=== PATIENT | male | born 1980 | race Caucasian/White ===

== ENCOUNTER 2020-09-27 02:17 | Inpatient (IN) | payer MEDICAID, SELFPAY ==
[2020-09-27 02:35] VITALS: BP 122/82; PULSE 102; RESP 15; TEMP 36.6; O2SAT 98; BMI 21.7
--- NOTE | 2020-09-27 02:50 | W.ED.PSYCH ---
HPI - Psych General: Chief Complaint: Psychiatric Symptoms Stated Complaint: SI Time Seen by Provider: 09/27/20 02:21 Source: patient Mode of arrival: ambulatory Limitations: no limitations History of Present Illness: HPI Narrative: 39-year-old male states has been having suicidal thoughts for months. He states is gotten much worsening scary section going to kill himself. He states he has a plan of jumping out in traffic. He states he supposed to be on medication but has not been on them in months to years. He states he was admitted once 10 years ago. He states that he needs to get help before he does something. He does admit to drinking alcohol. Associated symptoms: Reports suicidal ideation; Deny depression Review of Systems Const: Denies: fever(s), chills, body aches or change in appetite Eyes: Denies: blurry vision or eye discomfort ENMT: Denies: throat pain or dental pain Card: Denies: chest pain Resp: Denies: dyspnea GI: Denies: abdominal pain, nausea, vomiting or diarrhea : Denies: dysuria Musc: Denies: neck pain or back pain Skin/Breast: Denies: rash Neuro: Denies: headache(s) Psych: Reports: suicidal ideation; Denies: depression Jae/Lymph: Denies: easy bruising All/Imm: Denies: urticaria Physical Exam Const: COMMON NORMALS: no acute distress, patient oriented x3 and healthy appearing HENMT: COMMON NORMALS: normocephalic and atraumatic HEAD & SCALP: normocephalic and atraumatic Eye: COMMON NORMALS: Equal, round and reactive pupils present and EOMs intact bilaterally PUPIL: Yes Equal, round and reactive pupils present Neck/C-Spine: COMMON NORMALS: full ROM and supple Chest: COMMONS NORMALS: normal inspection of the chest and normal palpation of entire chest wall Resp: COMMON NORMALS: normal respiratory effort, No retractions, No use of accessory muscles and clear to auscultation bilaterally AUSCULTATION: clear to auscultation bilaterally Cardio: COMMON NORMALS: regular rate, regular rhythm and No murmurs present (Cardio) RATE: regular rate RHYTHM: regular rhythm GI: COMMON NORMALS: Normal to inspection, nondistended, normoactive bowel sounds present, Soft to palpation, non-tender and no masses PALPATION: Yes Soft to palpation Extremity: COMMON NORMALS: normal to inspection and full ROM Neuro: COMMON NORMALS: patient oriented x3, moves all extremities and no focal motor deficits Psych: COMMON NORMALS: mental status grossly normal, Normal thought process present and cooperative MOOD & AFFECT: Yes depressed mood THOUGHT PROCESS: Normal thought process present THOUGHT CONTENT: Yes Suicidality present Skin: COMMON NORMALS: no rashes or lesions noted and no wounds GENERAL SKIN EXAM: no rashes or lesions noted Course Vital Signs: Vital signs: Vital Signs Temperature 97.9 F 09/27/20 02:35 Pulse Rate 102 H 09/27/20 02:35 Respiratory Rate 15 09/27/20 02:35 Blood Pressure 122/82 09/27/20 02:35 Pulse Oximetry 98 09/27/20 02:35 MDM - Psych MDM Narrative: Medical decision making narrative: Patient presents for suicidal ideation with a plan to jump out in traffic. Patient placed on a 96 and is medically cleared. I spoke to psychiatrist and will admit. Lab Data: Labs: Lab Results 09/27/20 09/27/20 Range/Units 03:30 03:30 WBC 6.8 (4.0-10.0) 10^3/ uL RBC 4.16 (4.1-5.3) 10^6/u L Hgb 13.0 (11.7-16.6) g/dL Hct 40.3 L (42.0-52.0) % MCV 96.9 H (80-94) fL MCH 31.3 (28.0-34.0) pg MCHC 32.3 (30.0-36.0) g/dL RDW 12.3 (12.1-15.1) % Plt Count 268 (130-400) 10^3/c mm MPV 9.7 (7.4-10.4) fL Neut % (Auto) 56.3 % Lymph % (Auto) 32.5 % [place] % (Auto) 7.2 % Eos % (Auto) 3.1 % Baso % (Auto) 0.6 % Neut # (Auto) 3.80 (1.8-7.7) 10^3/u L Lymph # (Auto) 2.2 (0.8-4.8) 10^3/u L [place] # (Auto) 0.5 (0.2-0.9) 10^3/u L Eos # (Auto) 0.2 (0.0-0.8) 10^3/u L Baso # (Auto) 0.0 (0.0-0.1) 10^3/u L Nucleated RBC % (a uto) 0 % Nucleated RBCs # 0.0 /100WBC Sodium 143 (136-145) mmol/L Potassium 3.5 (3.5-5.1) mmol/L Chloride 107 (98-107) mmol/L Carbon Dioxide 24 (22-29) mmol/L Anion Gap 15.5 (5-19) BUN 15 (6-20) mg/dL Creatinine 0.7 (0.7-1.2) mg/dL GFR Calculation 126.2 (90-130) mL/min Glucose 123 H (65-115) mg/dL Calculated Osmolal ity 298 H (285-295) mOsm/k g Calcium 8.2 L (8.5-10.5) mg/dL Total Bilirubin 0.2 (0.15-1.2) mg/dL AST 18 (0-40) U/L ALT 27 (0-41) U/L Alkaline Phosphata se 51 (40-130) IU/L Total Protein 5.4 L (6.6-8.7) g/dL Albumin 3.6 (3.5-5.2) g/dL Globulin 1.8 (1.3-4.6) g/dL Salicylates < 0.3 L (3-10) mg/dL Acetaminophen < 5.0 L (10-30) ug/mL Ethyl Alcohol 202 H (0-10) mg/dL Discharge Plan Discharge Patient Disposition: Admitted As Inpatient Clinical Impression: Suicidal ideation Condition: Stable Coding Level of Care Code ED Computer Repair Technician for Sumi Fwd Exam Comprehensive
[2020-09-27 03:42] LABS: Basophils % 0.6 %; Eosinophils # 0.2 10^3/uL (0.0-0.8); Eosinophils % 3.1 %; Hematocrit 40.3 % (42.0-52.0); Lymphocytes # 2.2 10^3/uL (0.8-4.8); Lymphocytes % 32.5 %; Mean Corpuscular HGB Conc 32.3 g/dL (30.0-36.0); Mean Corpuscular Hemoglobin 31.3 pg (28.0-34.0); Mean Corpuscular Volume 96.9 fL (80-94); Mean Platelet Volume 9.7 fL (7.4-10.4); Monocytes # 0.5 10^3/uL (0.2-0.9); Monocytes % 7.2 %; Neutrophils % 56.3 %; Nucleated Red Blood Cells % 0 %; Platelet Count 268 10^3/cmm (130-400); Red Blood Count 4.16 10^6/uL (4.1-5.3); Red Cell Distribution Width 12.3 % (12.1-15.1); White Blood Count 6.8 10^3/uL (4.0-10.0)
[2020-09-27 04:00] LABS: Alanine Aminotransferase 27 U/L (0-41); Albumin Level 3.6 g/dL (3.5-5.2); Alcohol Level 202 mg/dL (0-10); Alkaline Phosphatase 51 IU/L (40-130); Anion Gap 15.5 (5-19); Aspartate Amino Transferase 18 U/L (0-40); Blood Urea Nitrogen 15 mg/dL (6-20); Calcium 8.2 mg/dL (8.5-10.5); Carbon Dioxide 24 mmol/L (22-29); Chloride 107 mmol/L (98-107); Globulin 1.8 g/dL (1.3-4.6); Glomerular Filtration Rate 126.2 mL/min (90-130); Glucose 123 mg/dL (65-115); Osmolality Calculated 298 mOsm/kg (285-295); Potassium 3.5 mmol/L (3.5-5.1); Sodium 143 mmol/L (136-145); Total Bilirubin 0.2 mg/dL (0.15-1.2); Total Protein 5.4 g/dL (6.6-8.7)
[2020-09-27 04:05] LABS: Acetaminophen < 5.0 ug/mL (10-30); Salicylate < 0.3 mg/dL (3-10)
[2020-09-27 06:09] LABS: Amphetamines Screen Urine Positive (Negative); Barbiturates Screen Urine Negative (Negative); Benzodiazepines Screen Urine Negative (Negative); Cocaine Screen Urine Negative (Negative); Opiate Screen Urine Negative (Negative); PCP Screen Urine Negative (Negative); THC Screen Urine Positive (Negative)
[2020-09-27 06:23] VITALS: BP 129/87; PULSE 80; RESP 16; TEMP 36.6; O2SAT 97
[2020-09-27 07:43] VITALS: BP 132/94; PULSE 91; RESP 18; TEMP 36.6; O2SAT 95
--- NOTE | 2020-09-27 08:29 | PC.NURSE ---
admit note 39-year-old male states has been having suicidal thoughts for months. He states is gotten much worsening wanting to kill himself. He states he has a plan of jumping out in traffic. He states he supposed to be on medication but has not been on them in months to years. He states he was admitted once 10 years ago. He states that he needs to get help before he does something. He does admit to drinking alcohol.
--- NOTE | 2020-09-27 13:07 | PM.NHP ---
Providers/Chief Complaint Admitting Physician: Merle Aponte DO Chief Complaint: SI HPI NPU History of Present Illness Reagan Nick is a 39 year old male with unclear past psychiatric history stating that the last time he had contact with mental health was while he was in residential a few years ago presented to the emergency department with worsening depressive symptoms and suicidal ideation as well as paranoid delusions that people are following him. Patient reports that he had been clean from methamphetamine for over a year but restarted use 3 months ago and has had near daily use over the past 3 months. Patient states that he last used a few days ago. Patient continues to report some paranoid delusions but denies any auditory hallucinations and denies any visual hallucinations. Patient reports that he has had ongoing depressive symptoms for the past year with worsening symptoms over the past month which she states prompted him to come in for evaluation and treatment. He states that he has been on psychotropic medication in the past for his depressive symptoms but states that he has not been treated with medication since he was last in residential a couple years ago. Patient states that he does not recall what medication he had previously taken. Psychiatric review of systems is otherwise negative. 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 Review of Systems General: Reports: 10 or more systems reviewed and unremarkable except in HPI and below Meds NPU Home Medications Medication Instructions Recorded Confirmed Last Taken Type metoprolol tartrate 50 mg tablet 50 mg PO BID 04/11/20 09/27/20 Unknown History sildenafil 100 mg tablet 100 mg PO DAILY PRN 04/11/20 09/27/20 Unknown History Allergies Allergy/AdvReac Type Severity Reaction Status Date / Time No Known Allergies Allergy Verified 04/11/20 10:51 [facility] NPU Other Psychiatric History: Other Psychiatric History: Per above, patient states that last psychiatric treatment was while he was in residential Reports past psychiatric hospitalizations but states it is been several years Denies past suicide attempts, denies any self-harm behavior Mental Status Exam MSE Comments: Patient sitting in the day room, calm, cooperative, shaved head, bearded, appropriately groomed wearing hospital scrubs, good eye contact Psychomotor activity is neither increased nor decreased although occasionally is somewhat fidgety, no agitation Speech is low volume, normal rate, spontaneous, fair articulation, not pressured I do not feel good, constricted affect, not labile Alert and oriented to person, place, time, situation Intellectual functioning appears to be average based on vocabulary, interview Memory and concentration appear to be fair to intact per interview Thought process, occasional delays, linear, no flight of ideas, no looseness of associations Thought content, some paranoia, does not appear to be attending to any internal stimuli, intermittent passive suicidal thoughts with no active intent or plan, no homicidal ideation Insight and judgment appear to be fair to intact Vitals/I&O/Wt Last Vital Signs Temp 97.9 F 09/27/20 07:43 Pulse 91 09/27/20 07:43 Resp 18 09/27/20 07:43 BP 132/94 09/27/20 07:43 Pulse Ox 95 09/27/20 07:43 Weight last 48 hrs Weight 61.235 kg Data NPU : 09/27/20 03:30 09/27/20 03:30 A&P Assessment and plan (1) Suicidal ideation: Status: Acute (2) Polysubstance abuse: Status: Acute (3) Methamphetamine abuse: Status: Acute (4) Depressive disorder: Status: Acute Additional A&P Information Patient with longstanding history of depressive symptoms states that his last treatment was while he was in residential a few years ago and was also the last time that he was treated with any medication, reports relapse on methamphetamine approximately 3 months ago and has been using on a daily basis with ongoing paranoia and recent worsening suicidal ideation. INVOLUNTARY ADMIT to inpatient psychiatry START fluoxetine 10 mg daily targeting depressive symptoms START olanzapine 5 mg twice daily targeting psychotic symptoms, mood Encouraged patient to participate in unit activities to include group sessions, unit milieu Coordinate with social welfare research worker for post discharge mental health care follow-up, substance counseling/treatment Involuntary Hold Information 96 Hour Hold: 96 Hour Involuntary Admission: Yes 96 Hour Hold Ending Date: 10/03/20 96 Hour Hold Ending Time: 02:56 Attestations NPU Medical Necessity Statement*: Psychiatric hospitalizations indicated for medication stabilization, coordination for safe discharge Anticipate hospital stay to exceed 2 midnights Time Spent in Patient Care: Greater than 35 minutes (>than 50% of time spent in counselling and/or direct pt care on unit). Coding Level of Care Code Acute Income Tax Preparer for Sumi Stephens Diagnoses Suicidal ideation R45.851 Polysubstance abuse F19.10 Methamphetamine abuse F15.10 Depressive disorder F32.9
[2020-09-27 13:09] VITALS: BP 132/94; PULSE 91; RESP 18; TEMP 36.6
[2020-09-27] MEDS: fluoxetine 10 mg Capsule PO (13:28)
[2020-09-27] MEDS: OLANZapine 5 mg TABLET PO ×2 (13:28→17:59)
[2020-09-27 20:56] VITALS: BP 120/77; PULSE 56; RESP 16; TEMP 37.2; O2SAT 98
[2020-09-28 06:00] VITALS: BP 131/89; PULSE 67; RESP 16; TEMP 37; O2SAT 96
[2020-09-28] MEDS: OLANZapine 5 mg TABLET PO ×2 (09:27→18:16)
[2020-09-28] MEDS: fluoxetine 10 mg Capsule PO (09:27)
[2020-09-28 14:00] VITALS: BP 148/92; PULSE 68; RESP 16; TEMP 36.9; O2SAT 97
--- NOTE | 2020-09-28 14:07 | PM.NPN ---
Subjective NPU Subjective: Interval history: Continues to be occasionally evasive about answering questions with regards to psychotic symptoms, depression but continues to report feeling depressed Denies any interval suicidal ideation Reports being compliant with medication and denies any medication side effects Somewhat evasive about attending post discharge substance treatment program Mental Status Exam MSE Comments: Initially lying in bed but goes to the day room for interview, calm, cooperative, good eye contact Psychomotor activity is neither increased nor decreased although occasionally is somewhat fidgety, no agitation Speech is low volume, normal rate, spontaneous, fair articulation, not pressured I feel depressed, constricted affect, not labile Alert and oriented to person, place, time, situation Memory and concentration appear to be fair to intact per interview Thought process, linear, no flight of ideas, no looseness of associations Thought content, no stated delusions, no hallucinations, no suicidal ideation, no homicidal ideation Insight and judgment appear to be fair to intact Vitals/I&O/Wt Last Vital Signs Temp 98.6 F 09/28/20 06:00 Pulse 67 09/28/20 06:00 Resp 16 09/28/20 06:00 BP 131/89 09/28/20 06:00 Pulse Ox 96 09/28/20 06:00 Weight last 48 hrs Weight 61.235 kg Data NPU : 09/27/20 03:30 09/27/20 03:30 A&P Assessment and plan (1) Suicidal ideation: Status: Acute (2) Depressive disorder: Status: Acute (3) Polysubstance abuse: Status: Acute (4) Methamphetamine abuse: Status: Acute Additional A&P Information Ongoing depressive symptoms, evasive about questions with regards to paranoia INCREASE to fluoxetine 20 mg daily CONTINUE olanzapine 5 mg twice daily Involuntary Hold Information 96 Hour Hold: 96 Hour Involuntary Admission: Yes 96 Hour Hold Ending Date: 10/03/20 96 Hour Hold Ending Time: 02:56 Attestations NPU Medical Necessity Statement*: Continues to require psychiatric hospitalization for medication stabilization Coding Level of Care Code Acute Diesel Truck Technician for Sumi Fwd Diagnoses Suicidal ideation R45.851 Depressive disorder F32.9 Polysubstance abuse F19.10 Methamphetamine abuse F15.10
[2020-09-28 22:00] VITALS: BP 146/96; PULSE 81; RESP 16; TEMP 36.4; O2SAT 97
[2020-09-29 06:00] VITALS: BP 143/93; PULSE 67; RESP 14; TEMP 36.3; O2SAT 98
[2020-09-29] MEDS: fluoxetine 10 mg Capsule 20 MG PO (09:14)
[2020-09-29] MEDS: OLANZapine 5 mg TABLET PO ×2 (09:14→17:23)
--- NOTE | 2020-09-29 11:48 | PM.NPN ---
Subjective NPU Subjective: Interval history: Continues to report worsening depressive symptoms, vague passive suicidal thoughts, no active intent or plan Denying any auditory or visual hallucinations, ongoing paranoia Reports being compliant with his medication, denies any medication side effects Mental Status Exam MSE Comments: Lying in bed, calm, cooperative, good eye contact Psychomotor activity is decreased, no agitation Speech is low volume, normal rate, spontaneous, fair articulation, not pressured I feel depressed, constricted affect, not labile Alert and oriented to person, place, time, situation Memory and concentration appear to be fair to intact per interview Thought process, linear, no flight of ideas, no looseness of associations Thought content, no stated delusions, no hallucinations, no suicidal ideation, no homicidal ideation Insight and judgment appear to be fair to intact Vitals/I&O/Wt Last Vital Signs Temp 97.4 F L 09/29/20 06:00 Pulse 67 09/29/20 06:00 Resp 14 09/29/20 06:00 BP 143/93 09/29/20 06:00 Pulse Ox 98 09/29/20 06:00 Data NPU : 09/27/20 03:30 09/27/20 03:30 A&P Assessment and plan (1) Suicidal ideation: Status: Acute (2) Depressive disorder: Status: Acute (3) Polysubstance abuse: Status: Acute (4) Methamphetamine abuse: Status: Acute Additional A&P Information Worsening depressive symptoms INCREASE to fluoxetine 40 mg daily CONTINUE other medication, continue to monitor Involuntary Hold Information 96 Hour Hold: 96 Hour Involuntary Admission: Yes 96 Hour Hold Ending Date: 10/03/20 96 Hour Hold Ending Time: 02:56 Attestations NPU Medical Necessity Statement*: Continues to require psychiatric hospitalization for medication stabilization Coding Level of Care Code Acute Medical Office Worker for g Fwd Diagnoses Suicidal ideation R45.851 Depressive disorder F32.9 Polysubstance abuse F19.10 Methamphetamine abuse F15.10
[2020-09-29 13:40] VITALS: BP 134/92; PULSE 70; RESP 16; TEMP 37.2; O2SAT 96
[2020-09-29 19:37] VITALS: BP 138/102; PULSE 76; RESP 18; TEMP 36.7; O2SAT 97
--- NOTE | 2020-09-30 04:52 | PC.NURSE ---
Pt slept most of shift, did come out of room to snack, and return to bed. Rested all evening, pt denies pain, denies AH, Vh, Denies SI/HI
[2020-09-30 06:00] VITALS: BP 140/99; PULSE 69; RESP 16; TEMP 36.6; O2SAT 99
[2020-09-30] MEDS: OLANZapine 5 mg TABLET PO ×2 (07:48→17:23)
[2020-09-30] MEDS: fluoxetine 20 mg Capsule 40 MG PO (07:48)
[2020-09-30 14:00] VITALS: BP 127/84; PULSE 86; RESP 17; TEMP 36.8; O2SAT 96
--- NOTE | 2020-09-30 14:10 | P.PN_ITS ---
Subjective NPU Subjective: Interval history: Patient reporting improvement in his depressive symptoms, states 2-3, denies any interval suicidal ideation Denies any interval psychotic symptoms, reports minimal paranoia States that he is been compliant with his medication, denies any medication side effects Mental Status Exam MSE Comments: Lying in bed, polite, interactive, good eye contact Psychomotor activity is neither increased nor decreased, no agitation Speech is low volume, normal rate, spontaneous, fair articulation, not pressured I feel a lot better, full range of affect, not labile Alert and oriented to person, place, time, situation Memory and concentration appear to be fair to intact per interview Thought process, linear, no flight of ideas, no looseness of associations Thought content, no stated delusions, no hallucinations, no suicidal ideation, no homicidal ideation Insight and judgment appear to be fair to intact Vitals/I&O/Wt Last Vital Signs Temp 97.9 F 09/30/20 06:00 Pulse 69 09/30/20 06:00 Resp 16 09/30/20 06:00 BP 140/99 09/30/20 06:00 Pulse Ox 99 09/30/20 06:00 Data NPU : 09/27/20 03:30 09/27/20 03:30 A&P Assessment and plan (1) Suicidal ideation: Status: Acute (2) Depressive disorder: Status: Acute (3) Polysubstance abuse: Status: Acute (4) Methamphetamine abuse: Status: Acute Additional A&P Information Reports improvement CONTINUE current medication, continue to monitor Involuntary Hold Information 96 Hour Hold: 96 Hour Involuntary Admission: Yes 96 Hour Hold Ending Date: 10/03/20 96 Hour Hold Ending Time: 02:56 Attestations NPU Medical Necessity Statement*: Continues to require psychiatric hospitalization for medication stabilization Coding Level of Care Code Acute Audiovisual Lead Technician for Sumi Fwd Diagnoses Suicidal ideation R45.851 Depressive disorder F32.9 Polysubstance abuse F19.10 Methamphetamine abuse F15.10
[2020-09-30 20:47] VITALS: BP 148/96; PULSE 89; RESP 20; TEMP 36.9; O2SAT 97
[2020-10-01 06:00] VITALS: BP 144/96; PULSE 85; RESP 18; TEMP 36.6; O2SAT 95
[2020-10-01] MEDS: fluoxetine 20 mg Capsule 40 MG PO (09:03)
[2020-10-01] MEDS: OLANZapine 5 mg TABLET PO (09:03)
--- NOTE | 2020-10-01 09:48 | P.DS_ITS ---
Diagnoses at Discharge Discharge Diagnosis (1) Suicidal ideation: Status: Acute (2) Depressive disorder: Status: Acute (3) Polysubstance abuse: Status: Acute (4) Methamphetamine abuse: Status: Acute Reason for Visit Reason for Visit: SI Hospital Course Hospital Course 39 year old male with unclear past psychiatric history stating that the last time he had contact with mental health was while he was in skilled nursing a few years ago presented to the emergency department with worsening depressive symptoms and suicidal ideation as well as paranoid delusions that people are following him. Patient reports that he had been clean from methamphetamine for over a year but restarted use 3 months ago and has had near daily use over the past 3 months. Patient states that he last used a few days ago. Patient continues to report some paranoid delusions but denies any auditory hallucinations and denies any visual hallucinations. Patient continued to report depressive symptoms at the time of initial evaluation and was started on fluoxetine which was titrated up to fluoxetine 40 mg daily and was started on olanzapine 5 mg twice daily targeting his psychotic symptoms to include paranoia. Patient reported significant improvement in both his depressive and psychotic symptoms and denied any medication side effects. Patient was denying any depressive symptoms and denying any psychotic symptoms after initiating treatment. Patient participated in unit milieu although he mostly stayed in his room with no reports of any behavioral disturbances. Patient was not suicidal and did not endorse any depressive or psychotic symptoms at the time of discharge and did not appear to pose an imminent threat of harm to himself or others. Low to moderate risk of harm to self given no current suicidal ideation and no endorsement of any psychiatric symptoms although he continues to be at an elevated risk if he continues to abuse methamphetamine or any other substances or alcohol leading to unexpected, impulsive behavior. Risk mitigation included psychiatric hospitalization, medication stabilization, recommendation to abstain from the use of substances and alcohol as well as the need for compliance with his medication, medication management and substance counseling/treatment follow- up. Patient was able to communicate his understanding of the above recommendations to include abstaining from the use of substances and alcohol and the need for follow-on substance counseling/treatment in order to further mitigate his risk of harm to self and others. Involuntary Hold Information 96 Hour Hold: 96 Hour Involuntary Admission: Yes 96 Hour Hold Ending Date: 10/03/20 96 Hour Hold Ending Time: 02:56 Mental Status Exam MSE Comments: Sitting in the day room, calm, cooperative, interactive, good eye contact Psychomotor activity is neither increased nor decreased, no agitation Speech is normal rate and volume, spontaneous, clear articulation, not pressured I feel good, full range of affect, not labile Alert and oriented to person, place, time, situation Memory and concentration appear to be fair to intact per interview Thought process, linear, no flight of ideas, no looseness of associations Thought content, no stated delusions, no hallucinations, no suicidal ideation, no homicidal ideation Insight and judgment appear to be fair to intact Discharge Data Vitals: Last Vital Signs Temp 97.8 F 10/01/20 06:00 Pulse 85 10/01/20 06:00 Resp 18 10/01/20 06:00 BP 144/96 10/01/20 06:00 Pulse Ox 95 10/01/20 06:00 Discharge Plan Discharge Patient Disposition: Home Condition: Stable Prescriptions: New olanzapine 5 mg Tablet 5 mg PO BID Qty: 60 RF: 0 fluoxetine 20 mg Capsule 40 mg PO DAILY Qty: 30 RF: 0 Continued metoprolol tartrate 50 mg tablet 50 mg PO BID RF: 0 sildenafil 100 mg tablet 100 mg PO DAILY PRN (Reason: Sexual Activity) RF: 0 Discharge Orders: Discharge Order (Routine); Ordered 10/01/20 Ordered By: Merle Aponte Referrals: [facility] [Outside] (Initial referral are walk-in Tuesdays and 7:30am to 3pm. The earlier the better) [facility] [Outside] Discharge Diet: Regular Discharge Activity: Resume usual activity Patient Instructions: Opioid Safety Discharge Attestations NPU Time Spent in Discharge Care*: greater than 30 min Status at Discharge: Cognitive status at discharge: cognitively intact , Behavioral status at discharge: cooperative , Functional status at discharge: independent ambulation Overall status at discharge: patient is back to baseline Coding Level of Care Code Acute g FW MI note Diagnoses Suicidal ideation R45.851 Depressive disorder F32.9 Polysubstance abuse F19.10 Methamphetamine abuse F15.10
[2020-10-01 10:00] VITALS: BP 144/96; PULSE 85; RESP 18; TEMP 36.6; O2SAT 95
== END 2020-10-01 11:59 | disposition home or self-care (01) | DRG 881 ==
LOC: ER 04:16 → NP 08:06
PROVIDERS: Admitting Provider Psychiatry & Neurology Psychiatry; Emergency Provider Emergency Medicine; Visit Provider Psychiatry & Neurology Psychiatry
DX: F32.9 Major depressive disorder, single episode, unspecified (principal); R45.851 Suicidal ideations; F15.10 Other stimulant abuse, uncomplicated; F19.10 Other psychoactive substance abuse, uncomplicated; F22 Delusional disorders
CPT/HCPCS: 80053; 80306; 80307; 85025; 99285

== ENCOUNTER 2024-12-06 15:42 | Inpatient (IN) | payer MEDICAID, SELFPAY ==
--- OUTSIDE RECORDS SUMMARY | 2021-09-12 04:54 | XMS_ITS | Continuity of Care Document ---
Author Organization [facility] Address [id number] [address] Phone Care Team Providers Care President And Ceo Name Role Phone Alejandro OD, Summer Unavailable Unavailabl e Procedures Procedure Date Vision svcs frames purchases Spherocylindr 4.00d/12-2.00d Spherocylindr 4.00d/12-2.00d FITTING OF SPECTACLES REFRACTION Eye Exam New Patient Advance Directives Directive Yes / No Effective Date File Name No Information Encounters Encounter Description Practice Location Reason(s) For Visit Diagnoses Date Provider Providers Copied on Encounter [facility], [id number] [place], [place], [id number], [place] tel:[phone] Vision F1 Encounter for fit/adjst of spectacles and contact lenses 2 Alejandro Yancey. [address], [place], [id number], [place]. tel:[phone] Referring Provider: Naye Allen , [address] [place], [address] . tel:[phone] [facility], [id number] [place], [id number], [place] tel:[phone] Vision F1 blurry vision (chief complaint) Myopia, bilateralRegular astigmatism, bilateral Martir- 2 Alejandro Yancey. [address], [place], [id number], . tel:[phone] Referring Provider: Naye Allen , [address] [facility] [place], [address] . tel:[phone] Family History Family Member Type Diagnosis Age At Onset No Information Payers Payer name Insurance type Covered alliance party ID Angelita bruce(s) V [employer] CI [id number] Social History Type Description Quantity Date Captured Comments Sex Male Smoking Status No Information Chief Complaint And Reason For Visit No Information Reason For Referral Reason For Referral No Information History Of Present Illness Encounter Date Complaint History Of Prese nt Illness blurry vision Last EE 2-3 year s ago. +distance blur. Lost glasses about 1 yr ago. Functional Status Date Functional Assessmen t No Information Instructions Date Instruction Additional Infor mation RTC 1yr carlos or sooner if problem s. Related to Myopia, bilateral Impression/Plan Related to Myopi a, bilateral Assessments Type Assessment Date No Information Patient Care Teams Name Effective Dates (start - stop) Status Members No Information
[2024-12-06 15:45] VITALS: BP 140/98; PULSE 107; RESP 16; TEMP 36.7; O2SAT 94
--- NOTE | 2024-12-06 15:46 | W.ED.PSYCHS ---
HPI - Psych General: Chief Complaint: Psychiatric Symptoms Stated Complaint: mhe Time Seen by Provider: 12/06/24 15:43 Source: patient Mode of arrival: ambulatory Limitations: other (intoxicated) History of Present Illness: Patient is a 44-year-old male who presents to ED today for evaluation of suicidal ideations. Patient arrives significantly intoxicated. He is not overly forthcoming with information. He states he was dropped off here at the emergency department for treatment of suicidal ideations. He will not disclose how long these have been going on. He does have a previous NPU admission back in 2020. Patient will not tell me if he has any specific plan or not. He will not elaborate on his alcohol use but does admit to being intoxicated currently. MD complaint: suicidal ideation and feels depressed Onset (ago): unknown History of same: Yes Exacerbating factors: alcohol Context: recent alcohol abuse Associated psychiatric symptoms: depression and suicidal ideation Associated symptoms: Reports depression and suicidal ideation Treatments prior to arrival: none If self harm: admits thoughts of self harm Related Data Home Medications ?Medication ?Instructions ?Recorded ?Confirmed epinephrine 0.3 mg/0.3 mL See Rx Instructions .Route .COMPLEX 12/06/24 12/06/24 injection, auto-injector famotidine 40 mg tablet 40 mg PO BID 12/06/24 12/06/24 famotidine 40 mg tablet 40 mg PO DAILY 12/06/24 12/06/24 hydrochlorothiazide 25 mg tablet 25 mg PO DAILY 12/06/24 12/06/24 lorazepam 0.5 mg tablet 0.5 mg PO BID PRN Anxiety 12/06/24 12/06/24 losartan 50 mg tablet 50 mg PO DAILY 12/06/24 12/06/24 pantoprazole 40 mg tablet,delayed 40 mg PO BID 12/06/24 12/06/24 release Allergies Allergy/AdvReac Type Severity Reaction Status Date / Time No Known Allergies Allergy Verified 04/11/20 10:51 Review of Systems Const: Denies: fever(s) or chills Card: Denies: chest pain, palpitations, lightheadedness or syncope Resp: Denies: dyspnea GI: Denies: abdominal pain, nausea, vomiting or diarrhea Skin/Breast: Denies: rash Neuro: Denies: headache(s) Psych: Reports: depression and suicidal ideation Physical Exam Const: COMMON NORMALS: average body habitus, healthy appearing, alert and well nourished EXAM LIMITATIONS: other limitations (intoxicated) GENERAL APPEARANCE: cooperative HENMT: COMMON NORMALS: normocephalic and atraumatic HEAD & SCALP: normal to inspection, normocephalic and atraumatic Resp: COMMON NORMALS: normal respiratory effort and clear to auscultation bilaterally AUSCULTATION: clear to auscultation bilaterally Cardio: COMMON NORMALS: regular rate and regular rhythm RATE: regular rate RHYTHM: regular rhythm Extremity: GENERAL: Yes normal exam except as noted Neuro: COMMON NORMALS: moves all extremities, no focal motor deficits, no sensory deficits noted and gait normal SENSORIUM/ORIENTATION: Yes alert Psych: APPEARANCE: Yes grossly normal ATTITUDE: Yes calm SPEECH: Yes minimal (intoxicated-often drifting off to sleep) INSIGHT: Limited insight present (Psych) JUDGEMENT: Limited judgement present (Psych) (due to intoxication) Course Consultations: Consultation #1: Dr. Martins-accepts to N[facility] Vital Signs: Vital signs: Vital Signs Temperature 98.1 F 12/06/24 15:45 Pulse Rate 107 H 12/06/24 15:45 Respiratory Rate 16 12/06/24 15:45 Blood Pressure 140/98 12/06/24 15:45 Pulse Oximetry 94 12/06/24 15:45 MDM - Psych Medical Decision Making Patient is a 44-year-old male who arrives acutely intoxicated complaining that he is suicidal. Patient was placed on a 96-hour hold. Medical clearance labs showing hypokalemia at 2.7. His magnesium is normal. No EKG changes. Alcohol was 398. He was given 20 mEq of IV potassium and 40 mEq PO. We will have his potassium checked in the morning and administer another 40 mEq then. Patient is now up walking, talking, etc and is clinically sober enough to go to N[facility]. Medical Records I reviewed the patient's medical records. Lab Data I reviewed the patient's lab results. 12/06/24 15:51 12/06/24 15:51 Laboratory Results WBC 9.61 10^3/uL (3.29-11.43) 12/06/24 15:51 RBC 4.88 10^6/uL (3.85-5.65) 12/06/24 15:51 Hgb 16.10 g/dL (11.27-16.99) 12/06/24 15:51 Hct 46.0 % (37-53) 12/06/24 15:51 MCV 94.3 fl (82-101) 12/06/24 15:51 MCH 33.0 pg (27-33) 12/06/24 15:51 MCHC 35.0 g/dL (30-55) 12/06/24 15:51 RDW 13.5 % (12.1-15.1) 12/06/24 15:51 Plt Count 373 10^3/cmm (157-399) 12/06/24 15:51 MPV 8.8 fL (7.4-10.4) 12/06/24 15:51 Neut % (Auto) 57.5 % 12/06/24 15:51 Lymph % (Auto) 32.8 % 12/06/24 15:51 Esmeralda % (Auto) 8.3 % 12/06/24 15:51 Eos % (Auto) 0.6 % 12/06/24 15:51 Baso % (Auto) 0.5 % 12/06/24 15:51 Neut # (Auto) 5.52 10^3/uL (1.8-7.7) 12/06/24 15:51 Lymph # (Auto) 3.2 10^3/uL (0.8-4.8) 12/06/24 15:51 Esmeralda # (Auto) 0.8 10^3/uL (0.2-0.9) 12/06/24 15:51 Eos # (Auto) 0.1 10^3/uL (0.0-0.8) 12/06/24 15:51 Baso # (Auto) 0.1 10^3/uL (0.0-0.1) 12/06/24 15:51 Nucleated RBC % (auto) 0 % 12/06/24 15:51 Nucleated RBCs # 0.0 /100WBC 12/06/24 15:51 Sodium 136 mmol/L (136-145) 12/06/24 15:51 Potassium 2.7 mmol/L (3.5-5.1) L* 12/06/24 15:51 Chloride 94 mmol/L (98-107) L 12/06/24 15:51 Carbon Dioxide 25 mmol/L (22-29) 12/06/24 15:51 Anion Gap 19.7 (5-19) H 12/06/24 15:51 BUN 7 mg/dL (6-20) 12/06/24 15:51 Creatinine 0.7 mg/dL (0.7-1.2) 12/06/24 15:51 GFR Calculation 123.1 mL/min (90-130) 12/06/24 15:51 Glucose 134 mg/dL (65-115) H 12/06/24 15:51 Calculated Osmolality 282 mOsm/kg (285-295) L 12/06/24 15:51 Calcium 9.3 mg/dL (8.5-10.5) 12/06/24 15:51 Magnesium 2.2 mg/dL (1.7-2.3) 12/06/24 15:51 Total Bilirubin 0.3 mg/dL (0.15-1.2) 12/06/24 15:51 AST 21 U/L (0-40) 12/06/24 15:51 ALT 23 U/L (0-41) 12/06/24 15:51 Alkaline Phosphatase 122 U/L (40-130) 12/06/24 15:51 Total Protein 8.1 g/dL (6.6-8.7) 12/06/24 15:51 Albumin 4.8 g/dL (3.5-5.2) 12/06/24 15:51 Globulin 3.3 g/dL (1.3-4.6) 12/06/24 15:51 Salicylates < 0.3 mg/dL (3-10) L 12/06/24 15:51 Urine Opiates Screen Negative ng/mL (Negative) 12/06/24 17:33 Acetaminophen < 5.0 ug/mL (10-30) L 12/06/24 15:51 Ur Barbiturates Screen Negative ng/mL (Negative) 12/06/24 17:33 Ur Phencyclidine Scrn Negative ng/mL (Negative) 12/06/24 17:33 Ur Amphetamines Screen Negative ng/mL (Negative) 12/06/24 17:33 U Benzodiazepines Scrn Negative ng/mL (Negative) 12/06/24 17:33 Urine Cocaine Screen Negative ng/mL (Negative) 12/06/24 17:33 U Marijuana (THC) Screen Positive ng/mL (Negative) H 12/06/24 17:33 Ethyl Alcohol 398 mg/dL (0-10) H* 12/06/24 15:51 No radiology studies performed this visit Discharge Plan Discharge Patient Disposition: Admitted As Inpatient Clinical Impression: Involuntary commitment, Suicidal ideation, Hypokalemia Alcohol intoxication Qualifiers: Complication of substance-induced condition: uncomplicated Qualified Code(s): F10.920 - Alcohol use, unspecified with intoxication, uncomplicated Condition: Stable Coding Level of Care Code ED Network Diagnostic Support Specialist for Sumi Stephens
[2024-12-06 16:02] LABS: Hematocrit 46.0 % (37-53); Hemoglobin 16.10 g/dL (11.27-16.99); Mean Corpuscular HGB Conc 35.0 g/dL (30-55); Mean Corpuscular Hemoglobin 33.0 pg (27-33); Mean Corpuscular Volume 94.3 fl (82-101); Nucleated Red Blood Cells % 0 %; Platelet Count 373 10^3/cmm (157-399); Red Blood Count 4.88 10^6/uL (3.85-5.65); White Blood Count 9.61 10^3/uL (3.29-11.43)
--- NOTE | 2024-12-06 16:23 | PC.NURSE ---
PT was read his 96 hour hold rights at this time. security present
[2024-12-06 16:25] LABS: Alanine Aminotransferase 23 U/L (0-41); Albumin Level 4.8 g/dL (3.5-5.2); Alkaline Phosphatase 122 U/L (40-130); Anion Gap 19.7 (5-19); Aspartate Amino Transferase 21 U/L (0-40); Blood Urea Nitrogen 7 mg/dL (6-20); Calcium 9.3 mg/dL (8.5-10.5); Carbon Dioxide 25 mmol/L (22-29); Chloride 94 mmol/L (98-107); Globulin 3.3 g/dL (1.3-4.6); Glucose 134 mg/dL (65-115); Osmolality Calculated 282 mOsm/kg (285-295); Sodium 136 mmol/L (136-145); Total Protein 8.1 g/dL (6.6-8.7)
[2024-12-06 16:35] LABS: Acetaminophen < 5.0 ug/mL (10-30); Salicylate < 0.3 mg/dL (3-10)
[2024-12-06 16:36] LABS: Alcohol Level 398 mg/dL (0-10); Potassium 2.7 mmol/L (3.5-5.1)
[2024-12-06 16:54] LABS: Magnesium 2.2 mg/dL (1.7-2.3)
[2024-12-06 17:48] LABS: PCP Screen Urine Negative (Negative)
[2024-12-06] MEDS: potassium chloride oral liq 20 mEq/15 mL UDC 40 MEQ PO (17:50)
[2024-12-06] MEDS: lidocaine 1% 5 ML in potassium chloride premix 100 ML 52.5 ML IV (17:51)
[2024-12-06 20:00] VITALS: BP 136/98; PULSE 79; RESP 16; O2SAT 96
--- NOTE | 2024-12-06 20:41 | ECG_ITS ---
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 Measurements Intervals [place] Rate: 84 P: 53 OK: 173 QRS: 19 QRSD: 93 T: 58 QT: 365 QTc: 432 Interpretive Statements SINUS RHYTHM SEPTAL MYOCARDIAL INFARCTION , OF INDETERMINATE AGE [40+ ms Q WAVE IN V1/V2] No previous ECG available for comparison Electronically Signed On 12-08-2024 08:14:49 CDT by Al Miranda M.D. [id number]
[2024-12-06 22:17] VITALS: BP 158/111; PULSE 76; RESP 16; TEMP 36.6; O2SAT 99
[2024-12-06] MEDS: thiamine 100 mg/mL 2mL SDV IM (22:47)
[2024-12-07 04:00] VITALS: BP 121/81; PULSE 80; RESP 16; O2SAT 96
[2024-12-07 06:34] VITALS: BP 149/93; PULSE 68; RESP 16; TEMP 37.1; O2SAT 97
[2024-12-07 08:36] LABS: Potassium 3.4 mmol/L (3.5-5.1)
[2024-12-07 08:48] VITALS: BP 149/93
[2024-12-07] MEDS: multivitamin therapeutic Tablet 1 TAB PO (08:48)
[2024-12-07 11:17] VITALS: BP 134/91; PULSE 70; RESP 20; TEMP 37.2; O2SAT 98
--- NOTE | 2024-12-07 13:17 | W.PM.NPUH&PS ---
Providers/Chief Complaint Admitting Physician: Hussein Martins MD Chief Complaint: mhe HPI NPU History of Present Illness Reagan Nick is a 44 year old male who presented to the emergency department with the following report: Chief Complaint: Psychiatric Symptoms Stated Complaint: mhe Time Seen by Provider: 12/06/24 15:43 Source: patient Mode of arrival: ambulatory Limitations: other (intoxicated) History of Present Illness: Patient is a 44-year-old male who presents to ED today for evaluation of suicidal ideations. Patient arrives significantly intoxicated. He is not overly forthcoming with information. He states he was dropped off here at the emergency department for treatment of suicidal ideations. He will not disclose how long these have been going on. He does have a previous N[facility] admission back in 2020. Patient will not tell me if he has any specific plan or not. He will not elaborate on his alcohol use but does admit to being intoxicated currently. complaint: suicidal ideation and feels depressed Onset (ago): unknown History of same: Yes Exacerbating factors: alcohol Context: recent alcohol abuse Associated psychiatric symptoms: depression and suicidal ideation Associated symptoms: Reports depression and suicidal ideation Treatments prior to arrival: none If self harm: admits thoughts of self harm He was admitted to the neuropsychiatric unit for definitive treatment of those issues. He is known to [facility] psychiatry through 8 past inpatient psychiatric hospitalizations from [id number] and 1 in 2020. An excerpt of his last evaluation and discharge summary are included below for context and history. He has had some outpatient services between 2009 and 2013 but none since. He presents with a UDS positive for cannabis. In 2020 he was positive for cannabis and methamphetamine. This time in addition to the positive cannabis there was a BAL of 398. He presented today reporting: Chief complaint Stress, persistent gastrointestinal symptoms, tremors, and alcohol use impacting ability to work. History of the present complaint Reported persistent inability to eat, with associated frequent episodes of feeling sick. Described ongoing stress related to these symptoms. Noted that symptoms have led to missing work and increased emotional distress. Additionally, described experiencing shakiness and twitching, both at work and outside of work, stating I'm just so shaky and twitching now. Indicated that these symptoms occur even when not feeling acutely ill. Described onset of alpha-gal syndrome, recently diagnosed by Dr. Hannon, which has significantly impacted daily life. Reported that the diagnosis has thrown my whole routine and contributed to ongoing stress and functional impairment. Stated that prior to the diagnosis, was sick and unable to work for approximately three and a half months. Reported experiencing thoughts of self-harm, stating I just was started having thoughts to hurt myself, and described feeling unable to go anywhere or do anything due to symptoms. Expressed frustration and distress over inability to eat and frequent absences from work. Noted that stress is compounded by nerve thing, described as shaking and twitching. Reported history of depression and anxiety, with previous use of Celexa for several years, but stated that it did not provide relief. Described discontinuation of Celexa as a train wreck, and reported difficulty coming off the medication. Also recalled possible use of Effexor and other antidepressants, but was unable to recall specific names. Denied current use of mental health medications. Reported history of substance use, including prior methamphetamine addiction, with abstinence for approximately four and a half years. Currently smokes marijuana and drinks alcohol. Admitted to recent excessive alcohol consumption, with blood alcohol level noted to be almost 400. Expressed concern about ability to abstain from alcohol without risking employment, and desire for a period of abstinence to regain control. Described living with mother, stating that living arrangement is half for her, half for me to have somewhere to stay. Reported that mother has celiac disease and fibromyalgia, and described her as a mess, contributing to stress. Noted that mother's health issues are a source of additional stress. Reported current use of losartan and hydrochlorothiazide for blood pressure, and lorazepam. Recalled prior use of Protonix, but discontinued due to concerns about codeine content. Also mentioned use of lisinopril for blood pressure in the past. Reported having children aged 18, 22, and 24. Denied current legal problems. Denied allergies to medication. Mental health history Had history of major depressive disorder with suicidal ideation approximately four years ago during prior hospitalization. Trials of selective serotonin reuptake inhibitors, including escitalopram and citalopram, were undertaken for several years without significant improvement. Subsequent use of serotonin-norepinephrine reuptake inhibitors such as venlafaxine resulted in challenging discontinuation. Also trialed bupropion. No current pharmacotherapy for depression or anxiety. 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 Reports ongoing alcohol use with documented blood alcohol concentration of 0.398 on presentation and regular cannabis use. Social history Lives with mother, partly for her own housing stability and partly to support her mother, who has celiac disease and fibromyalgia and contributes to household stress. 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 Misses work frequently due to illness related to alpha-gal syndrome, reporting shakiness and twitching episodes. Mother?s home is primary residence. Has three adult children aged 18, 22, and 24. History of substance use includes methamphetamine addiction, in remission for approximately 4.5 years. Currently consumes alcohol, with reported blood alcohol level of 0.398 on presentation, expresses intent to reduce intake. Smokes cannabis regularly. Per his 09/27/2020 [facility] inpatient psychiatric evaluation: History of Present Illness Reagan Nick is a 39 year old male with unclear past psychiatric history stating that the last time he had contact with mental health was while he was in care home a few years ago presented to the emergency department with worsening depressive symptoms and suicidal ideation as well as paranoid delusions that people are following him. Patient reports that he had been clean from methamphetamine for over a year but restarted use 3 months ago and has had near daily use over the past 3 months. Patient states that he last used a few days ago. Patient continues to report some paranoid delusions but denies any auditory hallucinations and denies any visual hallucinations. Patient reports that he has had ongoing depressive symptoms for the past year with worsening symptoms over the past month which she states prompted him to come in for evaluation and treatment. He states that he has been on psychotropic medication in the past for his depressive symptoms but states that he has not been treated with medication since he was last in care home a couple years ago. Patient states that he does not recall what medication he had previously taken. Psychiatric review of systems is otherwise negative. 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 Per his 10/01/2020 [facility] inpatient psychiatric discharge summary: Discharge Diagnosis (1) Suicidal ideation: Status: Acute (2) Depressive disorder: Status: Acute (3) Polysubstance abuse: Status: Acute (4) Methamphetamine abuse: Status: Acute Reason for Visit Reason for Visit: SI Hospital Course Hospital Course 39 year old male with unclear past psychiatric history stating that the last time he had contact with mental health was while he was in care home a few years ago presented to the emergency department with worsening depressive symptoms and suicidal ideation as well as paranoid delusions that people are following him. Patient reports that he had been clean from methamphetamine for over a year but restarted use 3 months ago and has had near daily use over the past 3 months. Patient states that he last used a few days ago. Patient continues to report some paranoid delusions but denies any auditory hallucinations and denies any visual hallucinations. Patient continued to report depressive symptoms at the time of initial evaluation and was started on fluoxetine which was titrated up to fluoxetine 40 mg daily and was started on olanzapine 5 mg twice daily targeting his psychotic symptoms to include paranoia. Patient reported significant improvement in both his depressive and psychotic symptoms and denied any medication side effects. Patient was denying any depressive symptoms and denying any psychotic symptoms after initiating treatment. Patient participated in unit milieu although he mostly stayed in his room with no reports of any behavioral disturbances. Patient was not suicidal and did not endorse any depressive or psychotic symptoms at the time of discharge and did not appear to pose an imminent threat of harm to himself or others. Low to moderate risk of harm to self given no current suicidal ideation and no endorsement of any psychiatric symptoms although he continues to be at an elevated risk if he continues to abuse methamphetamine or any other substances or alcohol leading to unexpected, impulsive behavior. Risk mitigation included psychiatric hospitalization, medication stabilization, recommendation to abstain from the use of substances and alcohol as well as the need for compliance with his medication, medication management and substance counseling/treatment follow-up. Patient was able to communicate his understanding of the above recommendations to include abstaining from the use of substances and alcohol and the need for follow-on substance counseling/treatment in order to further mitigate his risk of harm to self and others. Meds NPU Home Medications ?Medication ?Instructions ?Recorded ?Confirmed ?Last Taken ?Type epinephrine 0.3 mg/0.3 mL See Rx Instructions .Route .COMPLEX 12/06/24 12/06/24 Unknown History injection, auto-injector famotidine 40 mg tablet 40 mg PO BID 12/06/24 12/06/24 12/06/24 History famotidine 40 mg tablet 40 mg PO DAILY 12/06/24 12/06/24 Unknown History hydrochlorothiazide 25 mg tablet 25 mg PO DAILY 12/06/24 12/06/24 12/06/24 History lorazepam 0.5 mg tablet 0.5 mg PO BID PRN Anxiety 12/06/24 12/06/24 12/06/24 History losartan 50 mg tablet 50 mg PO DAILY 12/06/24 12/06/24 12/06/24 History pantoprazole 40 mg tablet,delayed 40 mg PO BID 12/06/24 12/06/24 12/06/24 History release Allergies Allergy/AdvReac Type Severity Reaction Status Date / Time alpha gal Allergy Unknown Uncoded 12/07/24 00:41 Mental Status Exam MSE Comments: This is a well-nourished well-developed white male in hospital scrubs with adequate grooming and limited eye contact. No abnormal movements except for mild psychomotor agitation. Cooperative with exam and mild to moderate distress. Speech was normal rate slightly decreased volume. Mood described as frustrated and overwhelmed, affect congruent and anxious. Thought process organized. Thought content: Patient denied homicidal ideation but endorsed having suicidal ideation leading to the admission There were no delusions reported or noted, he denied any auditory or visual hallucinations. Reports having thoughts to hurt themselves due to stress and inability to eat or work. Experiences significant anxiety, feeling stressed out, shaky, and twitchy. Has a history of depression and has been on medications like Celexa and Effexor. Reports inability to eat and feeling sick all the time. Stressors include work, living situation with mother, and health issues. Attention and concentration appeared intact and memory was mostly reliable but none were formally tested. He is alert and oriented x 3. Insight appeared fair, judgment was limited versus impaired and impulse control was impaired. Vitals/I&O/Wt Last Vital Signs Temp 99.0 F 12/07/24 11:17 Pulse 70 12/07/24 11:17 Resp 20 H 12/07/24 11:17 BP 134/91 12/07/24 11:17 Pulse Ox 98 12/07/24 11:17 O2 Del Method Room Air 12/07/24 11:17 12/06/24 12/07/24 12/07/24 22:59 06:59 14:59 Intake Total 1105 / 1105 Balance 1105 / 1105 Weight last 48 hrs Weight 79.379 kg Data NPU 12/06/24 15:51 12/07/24 08:09 A&P Assessment and plan 1. Alcohol intoxication: 2. Suicidal ideation: 3. Depressive disorder: 4. Anxiety disorder: 5. Alcohol use disorder, severe, dependence: Plan: This is a 44-year-old white male with a significant history of depression and addiction who presents about 4+ years after his last hospitalization here reporting that he had been doing okay until about 4 months ago when he became sick and it was identified that he has alpha gal. He continues to struggle with active addiction presenting with a blood alcohol of 398 and a UDS positive for cannabis endorsing a need to get reconnected with services. Depression and anxiety are present and have been persistent despite previous trials of Celexa and Effexor, with limited efficacy. Alcohol use disorder is significant, with recent blood alcohol level of 398 mg/dL, and ongoing cravings. History of methamphetamine addiction, currently in remission for approximately 4.5 years. Stress is exacerbated by alpha-gal diagnosis and associated dietary restrictions, as well as work and family stressors. Tremors and twitching are reported, possibly related to stress and underlying psychiatric conditions. Plan Recommended cessation of alcohol consumption due to its negative impact on gastrointestinal health and overall well-being. Considered initiation of naltrexone to assist with alcohol cravings, with a plan to reassess in a couple of days before starting the medication. Discussed the possibility of starting an antidepressant or anti-anxiety medication, such as Lexapro or Wellbutrin, and will follow up in the morning to determine patient preference and readiness to initiate pharmacotherapy for depression and anxiety. 1. Consider initiation of medication. 2. Continue every 15 minute checks for safety. 3. Encourage individual, group and milieu therapy. 4. Initiate CIWA protocol. 5. Encourage sober living treatment after discharge to the highest level care to which he is going to commit. 6. Obtain collateral information. 7. Evaluate against the backdrop of the 96-hour hold. PDMP PDMP Reviewed: Not Reviewed Involuntary Hold Information Hold Status: Legal Status: 96 Hour Hold Date/Time Hold Expires: 12/11/2024 @ 0001 96 Hour Hold: 96 Hour Involuntary Admission: Yes Attestations NPU Medical Necessity Statement*: Patient hospitalization is medically necessary and the clinically appropriate intervention at this time. We will monitor/initiate medications and make changes as indicated. He will be in the hospital for over 2 midnights. Likely length of stay 3 to 5 days. Coding Level of Care Code Acute Code for Chg Fwd Diagnoses Alcohol intoxication F10.929 Suicidal ideation R45.851 Depressive disorder F32.A Anxiety disorder F41.9 Alcohol use disorder, severe, dependence F10.20
[2024-12-07 16:00] VITALS: BP 151/103; PULSE 76; RESP 18; TEMP 37.2; O2SAT 99
[2024-12-07 20:00] VITALS: BP 142/90; PULSE 77; RESP 18; TEMP 37.4; O2SAT 98
[2024-12-08] VITALS (7 sets, daily range): BP systolic 141–160; BP diastolic 96–116; PULSE 59–100; RESP 16–18; TEMP 36.7–37.1; O2SAT 96–99
[2024-12-08] MEDS: multivitamin therapeutic Tablet 1 TAB PO (09:05)
--- NOTE | 2024-12-08 09:39 | NUR.SHIFT ---
Pt states that he slept pretty good last night. He denies anxiety or depression this morning. No reports of SI/HI or hallucinations. No pain reported. He did not score on CIWA. She is calm and cooperative on assessment.
--- NOTE | 2024-12-08 13:07 | PC.NURSE ---
Pt did not score high enough on CIWA to receive ativan, but in addition to what he did have his bp was 156/101. I spoke with Dr. Martins and he approved for pt to have Ativan 2mg po per protocol. Pt was given meds.
--- NOTE | 2024-12-08 17:03 | PC.NURSE ---
Dr. Martins v/o for Wellbutrin SR 150mg now and then Wellbutrin XL 150mg starting tomorrow.
--- NOTE | 2024-12-08 18:53 | P.NPUPN_ITS ---
Subjective NPU 2 Subjective: Patient presented today reporting that things are okay. He reports he has withdrawal is going all right. He reports he is tolerating the medications being used to assist in his detoxification. We reviewed our discussion from yesterday about medication and discussed the risks, benefits and alternatives of initiating Wellbutrin XL 150 mg p.o. every morning and he understood and agreed to proceed as is documented in this note. He denies side effects to his current medication. Mental Status Exam 2 MSE Comments: This is a well-nourished well-developed white male in hospital scrubs with adequate grooming and limited eye contact. No abnormal movements except for mild psychomotor agitation. Cooperative with exam and mild to moderate distress. Speech was normal rate slightly decreased volume. Mood described as frustrated and overwhelmed, affect congruent and anxious. Thought process organized. Thought content: Patient denied homicidal ideation but endorsed having suicidal ideation leading to the admission There were no delusions reported or noted, he denied any auditory or visual hallucinations. Reports having thoughts to hurt themselves due to stress and inability to eat or work. Experiences significant anxiety, feeling stressed out, shaky, and twitchy. Has a history of depression and has been on medications like Celexa and Effexor. Reports inability to eat and feeling sick all the time. Stressors include work, living situation with mother, and health issues. Attention and concentration appeared intact and memory was mostly reliable but none were formally tested. He is alert and oriented x 3. Insight appeared fair, judgment was limited versus impaired and impulse control was impaired. Vitals/I&O/Wt Last Vital Signs Temp 98.0 F 12/08/24 04:00 Pulse 100 12/08/24 16:00 Resp 16 12/08/24 16:00 BP 146/97 12/08/24 16:00 Pulse Ox 97 12/08/24 12:00 O2 Del Method Room Air 12/08/24 16:00 O2 Flow Rate 97 12/08/24 16:00 Data NPU 12/06/24 15:51 12/07/24 08:09 A&P Assessment and plan 1. Alcohol intoxication: 2. Suicidal ideation: 3. Depressive disorder: 4. Anxiety disorder: 5. Alcohol use disorder, severe, dependence: Plan: This is a 44-year-old white male with a significant history of depression and addiction who presents about 4+ years after his last hospitalization here reporting that he had been doing okay until about 4 months ago when he became sick and it was identified that he has alpha gal. He continues to struggle with active addiction presenting with a blood alcohol of 398 and a UDS positive for cannabis endorsing a need to get reconnected with services. Depression and anxiety are present and have been persistent despite previous trials of Celexa and Effexor, with limited efficacy. Alcohol use disorder is significant, with recent blood alcohol level of 398 mg/dL, and ongoing cravings. History of methamphetamine addiction, currently in remission for approximately 4.5 years. Stress is exacerbated by alpha-gal diagnosis and associated dietary restrictions, as well as work and family stressors. Tremors and twitching are reported, possibly related to stress and underlying psychiatric conditions. Plan Recommended cessation of alcohol consumption due to its negative impact on gastrointestinal health and overall well-being. Considered initiation of naltrexone to assist with alcohol cravings, with a plan to reassess in a couple of days before starting the medication. Discussed the possibility of starting an antidepressant or anti-anxiety medication, such as Lexapro or Wellbutrin, and will follow up in the morning to determine patient preference and readiness to initiate pharmacotherapy for depression and anxiety. 1. Consider initiation of medication. Start Wellbutrin XL 150 mg p.o. daily. Discussed initiating naltrexone by discharge. 2. Continue every 15 minute checks for safety. 3. Encourage individual, group and milieu therapy. 4. Initiate CIWA protocol. 5. Encourage sober living treatment after discharge to the highest level care to which he is going to commit. 6. Obtain collateral information. 7. Evaluate against the backdrop of the 96-hour hold. PDMP PDMP Reviewed: Not Reviewed Involuntary Hold Information 2 Hold Status: Legal Status: 96 Hour Hold Date/Time Hold Expires: 12/11/2024 @ 0001 96 Hour Hold: 96 Hour Involuntary Admission: Yes Attestations NPU 2 Medical Necessity Statement*: Patient hospitalization is medically necessary and the clinically appropriate intervention at this time. We will monitor/initiate medications and make changes as indicated. Likely length of stay 2-4 days. Coding Level of Care Code Acute Code for Chg Fwd Diagnoses Alcohol intoxication F10.929 Suicidal ideation R45.851 Depressive disorder F32.A Anxiety disorder F41.9 Alcohol use disorder, severe, dependence F10.20
[2024-12-09] VITALS (8 sets, daily range): BP systolic 138–150; BP diastolic 82–108; PULSE 64–96; RESP 16–18; TEMP 36.7–37.1; O2SAT 94–98
[2024-12-09] MEDS: multivitamin therapeutic Tablet 1 TAB PO (08:21)
--- NOTE | 2024-12-09 18:06 | P.NPUPN_ITS ---
Subjective NPU 2 Subjective: Patient presented today reporting that things are going fine and that he is struggling here with eating given his alpha gal. He is he reports that it has been a significant challenge but that he will continue to do the acupuncture and is doing that weekly and is hopeful that that will alleviate that and that he can get his sobriety under control and return to work. Continue to make money that things will fall into place. He endorsed a willingness to do some outpatient treatment related to his alcohol addiction. He denied any side effects of medication we discussed the tentative plan for discharge tomorrow. Mental Status Exam 2 MSE Comments: This is a well-nourished well-developed white male in hospital scrubs with adequate grooming and limited eye contact. No abnormal movements except for mild psychomotor agitation. Cooperative with exam in mild distress. Speech was normal rate slightly decreased volume. Mood described as better and ready to go face issues in my life, affect congruent and less anxious. Thought process organized. Thought content: Patient denied suicidal or homicidal ideation. There were no delusions reported or noted, he denied any auditory or visual hallucinations. Attention and concentration appeared intact and memory was mostly reliable but none were formally tested. He is alert and oriented x 3. Insight appeared fair, judgment was limited versus impaired and impulse control was impaired. Vitals/I&O/Wt Last Vital Signs Temp 98.7 F 12/09/24 16:00 Pulse 96 12/09/24 16:00 Resp 17 12/09/24 16:00 BP 146/108 12/09/24 16:00 Pulse Ox 98 12/09/24 16:00 O2 Del Method Room Air 12/09/24 16:00 O2 Flow Rate 97 12/08/24 16:00 12/09/24 12/09/24 12/09/24 06:59 14:59 22:59 Intake Total 0 / 0 Balance 0 / 0 Data NPU 12/06/24 15:51 12/07/24 08:09 A&P Assessment and plan 1. Alcohol intoxication: 2. Suicidal ideation: 3. Depressive disorder: 4. Anxiety disorder: 5. Alcohol use disorder, severe, dependence: Plan: This is a 44-year-old white male with a significant history of depression and addiction who presents about 4+ years after his last hospitalization here reporting that he had been doing okay until about 4 months ago when he became sick and it was identified that he has alpha gal. He continues to struggle with active addiction presenting with a blood alcohol of 398 and a UDS positive for cannabis endorsing a need to get reconnected with services. Depression and anxiety are present and have been persistent despite previous trials of Celexa and Effexor, with limited efficacy. Alcohol use disorder is significant, with recent blood alcohol level of 398 mg/dL, and ongoing cravings. History of methamphetamine addiction, currently in remission for approximately 4.5 years. Stress is exacerbated by alpha-gal diagnosis and associated dietary restrictions, as well as work and family stressors. Tremors and twitching are reported, possibly related to stress and underlying psychiatric conditions. Plan Recommended cessation of alcohol consumption due to its negative impact on gastrointestinal health and overall well-being. Considered initiation of naltrexone to assist with alcohol cravings, with a plan to reassess in a couple of days before starting the medication. Discussed the possibility of starting an antidepressant or anti-anxiety medication, such as Lexapro or Wellbutrin, and will follow up in the morning to determine patient preference and readiness to initiate pharmacotherapy for depression and anxiety. 1. Consider initiation of medication. Started Wellbutrin XL 150 mg p.o. daily. Will initiate naltrexone 50 mg p.o. daily. 2. Continue every 15 minute checks for safety. 3. Encourage individual, group and milieu therapy. 4. Initiate CIWA protocol. 5. Encourage sober living treatment after discharge to the highest level care to which he is going to commit. 6. Obtain collateral information. 7. Evaluate against the backdrop of the 96-hour hold. PDMP PDMP Reviewed: Not Reviewed Involuntary Hold Information 2 Hold Status: Legal Status: 96 Hour Hold Date/Time Hold Expires: 12/11/2024 @ 0001 96 Hour Hold: 96 Hour Involuntary Admission: Yes Attestations NPU 2 Medical Necessity Statement*: Patient hospitalization is medically necessary and the clinically appropriate intervention at this time. We will monitor/initiate medications and make changes as indicated. Likely length of stay 1-3 days. Coding Level of Care Code Acute Code for Chg Fwd Diagnoses Alcohol intoxication F10.929 Suicidal ideation R45.851 Depressive disorder F32.A Anxiety disorder F41.9 Alcohol use disorder, severe, dependence F10.20
[2024-12-10 04:00] VITALS: BP 132/88; PULSE 64; RESP 17; TEMP 36.8; O2SAT 97
--- NOTE | 2024-12-10 04:31 | PC.NURSE ---
Pt does not seem to respond with a a significant change in blood pressure on or of the Ativan. A new or different blood pressure medication should be considered over any withdrawal protocol as he is not symptomatic.
[2024-12-10 08:00] VITALS: BP 126/93; PULSE 85; RESP 18; TEMP 37.1; O2SAT 100
[2024-12-10 08:40] VITALS: BP 132/88
[2024-12-10] MEDS: multivitamin therapeutic Tablet 1 TAB PO (08:40)
[2024-12-10 11:15] VITALS: BP 132/88; PULSE 85; RESP 18; TEMP 37.1; O2SAT 100
[2024-12-10 11:35] VITALS: BP 120/80
== END 2024-12-10 13:05 | disposition home or self-care (01) | DRG 885 ==
LOC: ER 19:45 → NP 21:35
PROVIDERS: Admitting Provider Psychiatry & Neurology Psychiatry; Emergency Provider Physician Assistant; Visit Provider Psychiatry & Neurology Psychiatry
DX: F33.9 Major depressive disorder, recurrent, unspecified (principal); R45.851 Suicidal ideations; F10.229 Alcohol dependence with intoxication, unspecified; F12.90 Cannabis use, unspecified, uncomplicated; Y90.8 Blood alcohol level of 240 mg/100 ml or more; F41.9 Anxiety disorder, unspecified; E87.6 Hypokalemia; Z91.014 Allergy to mammalian meats; F15.11 Other stimulant abuse, in remission; R25.1 Tremor, unspecified
CPT/HCPCS: 36415; 80053; 80306; 80307; 83735; 84132; 85025; 93005; 96372; 97150; 97165; 99285; J3411; J3480; J7030; J9999